=== PATIENT | male | born 1970 | race Caucasian/White ===

== ENCOUNTER 2022-08-28 13:06 | Emergency (ER) | payer MEDICAID ==
[~2022-08-28] VITALS: Ht 180.3 cm; Wt 106.6 kg
[2022-08-28] MEDS ORDERED: Amoxicillin500 MG PO (13:35)
== END 2022-08-28 13:35 | disposition home or self-care (01) ==
LOC: ER 13:06
DX: K04.7 Periapical abscess without sinus (principal); Z79.899 Other long term (current) drug therapy
CPT/HCPCS: 99282